=== PATIENT | male | born 1970 | race Caucasian/White ===

== ENCOUNTER 2016-06-28 12:34 | Emergency (ER) ==
--- NOTE | 2016-06-28 13:08 | PROVIDER DOCUMENTATION ---
HPI-General Adult - General Chief Complaint: Return/Recheck Stated Complaint: EXTREMITY PAIN/POSS BLOOD CLOT Time Seen by Provider: 06/28/16 12:44 Source: patient Allergies/Adverse Reactions: Patient Allergies Allergy/AdvReac Type Severity Reaction Status Date / Time codeine Allergy NAUSEA/VOMI Verified 06/22/16 07:18 TING latex AdvReac RASH Verified 06/22/16 07:18 Home Medications: Alprazolam [Xanax] 1 mg PO QHS 02/18/14 Divalproex [Depakote] 500 mg PO DAILY 10/07/15 Methocarbamol [Robaxin-750] 750 mg PO TID 01/28/16 Montelukast Sodium [Singulair] 4 mg PO DAILY 01/28/16 - History of Present Illness -Gen Adult Nature of Presenting Problems: Pt. is 45 yom that presents with c/o left leg pain and was recently diagnosed with a DVT in his right leg. Pt. has returned today concerned that the clot is worse and states the pain is worse. Location of Pain/Injury: reports: lower extremity (Right lower). denies: head, face, mouth, neck, chest, upper extremity, hand(s), abdomen, back, pelvis, genitalia, feet, upper body, lower body, generalized Pain Radiation: reports: no radiation Quality of Pain: reports: aching. denies: burning, cramping, dull, fullness, indigestion, pressure, sharp, stabbing, tearing, throbbing, tightness Severity: reports: moderate. denies: mild, severe Onset/Duration: reports: gradual, 1 week ago Timing: reports: still present, constant. denies: improving, gone now, resolved prior to arrival, intermittent, changing over time, getting worse Context/Activities at Onset: reports: none. denies: recent emotional stress, recent physical stress, recent trauma history, possible bad food, cold exposure , out of country travel Modifying Factors: improves with: nothing Associated Symptoms: reports: other (Right leg pain). denies: anxiety, arm pain , back/neck pain, chest pain, constipation, cough, diaphoresis, diarrhea, dizziness, EENT symptoms, fatigue, fever/chills, genitourinary problems, headaches, heartburn, joint pain, loss of appetite, malaise, muscle aches, sinus congestion/drainage, nausea, rash, seizure, shortness of breath, sensory/ motor loss, pain with inspiration, swelling/mass in abdomen, syncope, vomiting, weakness, trouble walking Similar Symptoms Previously?: Yes Recently seen or treated by another doctor?: Yes Review of Systems - Adult - REVIEW OF SYSTEMS - ADULT Constitutional: reports: see HPI. denies: chills, fever, fatique Eyes: reports: see HPI. denies: discharge, blurred vision, double vision Ears, Nose, Mouth & Throat: reports: see HPI. denies: ear discharge, ear pain, sinus problem, nose pain, loose teeth, mouth/dental pain, throat pain Cardiovascular: reports: see HPI. denies: chest pain, irregular heart rate, orthopnea, syncope Respiratory: reports: see HPI. denies: chronic cough, cough, dyspnea on exertion, pleurisy, shortness of breath, wheezing Gastrointestinal: reports: see HPI. denies: abdominal pain, hematemesis, diarrhea, nausea, vomiting Genitourinary: reports: see HPI. denies: dysuria, discharge, hematuria, hesitency, urgency Musculoskeletal: reports: see HPI, muscle aches (right leg). denies: bone pain , back pain, joint pain, joint swelling, neck pain Integumentary: reports: see HPI. denies: hives, hair loss, itching, rash, skin thickening Neurological: reports: see HPI. denies: ataxia, headache/migraines, numbness, seizure, tremors Psychiatric: reports: see HPI. denies: anxiety, depression, insomnia, panic attacks, suicidal thoughts Past History - Adult - PAST MEDICAL HISTORY-ADULT Review of Records: reports: Old Records Reviewed, Nursing Assessment Review, Medications Reviewed, Social history reviewed & non-contributory. Respiratory: reports: sleep apnea Musculoskeletal: reports: intervertebral disc disease (cervical DDD) Neurological: reports: headaches/migraines Psychiatric: reports: anxiety, bipolar - PRIOR SURGERIES/PROCEDURES Surgical/Procedure History: reports: tonsillectomy, orthopedic (extremity) - PRIOR HOSPITALIZATIONS Prior Hospitalizations: reports: none - IMMUNIZATION STATUS Childhood Immunizations: See Nurse Assessment Flu Vaccine: See Nurse Assessment - FAMILY HISTORY Family History: CAD over 55 yo Physical Exam-General - PHYSICAL EXAM-ADULT Initial Vital Signs Reviewed: Yes - CONSTITUTIONAL General Appearance: alert, mild distress, thin. negative: anxious, lethargic, slow to respond, obtunded, combative - EYES Eyes: PERRL/EOMI, pink conjunctivae. negative: conjuctival exudate, scleral icterus, subconjunctival hemorrhage - HEAD, EARS, NOSE, MOUTH & THROAT HENMT: normocephalic/atraumatic, moist mucous membranes, normal ENT inspection. negative: angioedema, frontal tenderness, maxillary tenderness - NECK Neck: non-tender, full range of motion, supple, normal inspection. negative: lymphadenopathy, trachial deviation, thyromegaly - RESPIRATORY Respiratory: lungs clear, normal breath sounds. negative: crackles, rales, rhonchi, stridor, wheezing - CARDIOVASCULAR Cardiovascular: normal peripheral pulses, regular rate, rhythm, no edema, no JVD , no murmur. negative: extra beats, friction rub, irregularly irregular - CHEST (BREASTS) Chest/Breast: deferred - GASTROINTESTINAL (ABDOMEN) Abdominal Exam: normal bowel sounds, non tender, soft. negative: distended, guarding, rigid, rebound, tenderness, hernia, mass - GENITOURINARY Male Genitalia: deferred Rectal Exam: deferred Hemoccult Exam: deferred - LYMPHATIC Lymphatic: no adenopathy. negative: axilla node tender, cervical node tenderness - MUSCULOSKELETAL Back Exam: normal inspection, no CVA tenderness, no vertebral tenderness. negative: ecchymosis, muscle spasm, vertebral tenderness Extremity: normal range of motion, normal gait, erythema (Right leg), tenderness (Right leg). negative: deformity, inflammation Peripheral Pulses: radial (R): 2+, radial (L): 2+ - SKIN Integumentary: normal color, normal turgor, warm/dry. negative: cyanosis, diaphoresis, ecchymosis, erythema, jaundice, mottled, pallor, petechiae, purpura , rash, swelling, tenderness - NEUROLOGIC Neurologic: grossly normal, no motor/sensory deficits. negative: aphasia, facial droop, focal weakness, motor weakness, sensory deficit - PSYCHIATRIC Psych/Mental Status: normal mood/affect, normal thought content, normal thought process, oriented x 3. negative: anxious, paranoid, tearful Progress - PLAN OF CARE/RESULTS Progress/Plan/Lab Results: Discussed results and plan of care with patient. Patient agrees with plan and verbalizes understanding. Vital Signs Temp Pulse Resp BP Pulse Ox 06/28/16 12:37 97.9 F 80 18 154/90 100 codeine Allergy (Verified 06/22/16 07:18) NAUSEA/VOMITING latex Adverse Reaction (Verified 06/22/16 07:18) RASH Alprazolam [Xanax] 1 mg PO QHS 02/18/14 Divalproex [Depakote] 500 mg PO DAILY 10/07/15 Methocarbamol [Robaxin-750] 750 mg PO TID 01/28/16 Montelukast Sodium [Singulair] 4 mg PO DAILY 01/28/16 Clindamycin [Cleocin] 300 mg PO Q6HR #28 capsule 06/22/16 Hydrocodone/Acetaminophen [[place] 5-325 Tablet] 1 each PO Q6H PRN #20 tablet Acetaminophen/Diphenhydramine [Percogesic Extra Str Caplet] 1 each PO Q4-6H PRN PRN #30 tablet 06/25/16 Apixaban [Eliquis] 5 mg PO BID #60 tablet 06/25/16 Departure - Departure Time of Disposition Order: 13:14 DIAGNOSIS: Thrombophlebitis DVT (deep venous thrombosis) Qualifiers: DVT location: lower extremity Affected thrombotic vein of extremity: unspecified vein of extremity Laterality: right Chronicity: acute Qualified Code (s): I82.401 - Acute embolism and thrombosis of unspecified deep veins of right lower extremity Disposition: HOME 01 Certified Medical Emergency: Emergent Condition: Stable Additional Instructions: Follow up with primary care physician Continue previously prescribed medications Return to ED for any concerns or worsening of symptoms ED Follow Up Instructions: You have been treated by a care provider in the Emergency Department. These instructions are being provided to you so you can have an understanding of how to care for yourself upon discharge. Upon discharge from the Emergency Department, you are responsible for making arrangements for follow-up care by a physician of your choice. Take all prescribed medications as directed. Return to the Emergency Department immediately for any new or worsening symptoms. You may call the Physician Referral phone number at [phone] to obtain a list of Physicians who are taking new patients. Prescriptions: Clindamycin [Cleocin] 150 mg PO Q6HR #16 capsule Ibuprofen [Motrin] 800 mg PO Q8H PRN PRN #20 tablet PRN Reason: inflammation Omeprazole 20 mg PO DAILY #20 tablet. Attestation - Physician/ Mid-level Attestation Patient care was provided by Mid-level provider ([employer]):: Yes Mid-level provider:: Adam Adhikari Mid-level documentation review:: The Mid-level provider documentation, treatment plan and medical decision making was reviewed by the physician who agrees with all treatment and medical decision making by the MLP. The physician spent face to face time with patient:: Yes
[2016-06-28 13:31] VITALS: BP 145/74
== END 2016-06-28 13:30 | disposition home or self-care (01) ==
LOC: P.ED 12:34
DX: I82.401 Acute embolism and thrombosis of unspecified deep veins of right lower extremity (principal); I80.299 Phlebitis and thrombophlebitis of other deep vessels of unspecified lower extremity; M79.605 Pain in left leg; M79.1 Myalgia; R51 Headache; M50.30 Other cervical disc degeneration, unspecified cervical region; F41.9 Anxiety disorder, unspecified; F31.9 Bipolar disorder, unspecified; Z79.899 Other long term (current) drug therapy; Z79.01 Long term (current) use of anticoagulants; Z82.49 Family history of ischemic heart disease and other diseases of the circulatory system
CPT/HCPCS: 99282

== ENCOUNTER 2016-06-29 14:57 | Emergency (ER) ==
[2016-06-29 15:34] VITALS: BP 129/84
--- NOTE | 2016-06-29 17:01 | PROVIDER DOCUMENTATION ---
Addendum entered and electronically signed by Aretha Woodall Scribe 06/29/16 17 :47: Progress - PLAN OF CARE/RESULTS Progress/Plan/Lab Results: Orders Category Date Time Status CHEST-2 VIEWS [RAD] Stat Exams 06/29/16 16:[address] [URINALYSIS] Stat Lab 06/29/16 17:[address]EN [address] Stat Lab 06/29/16 17:02 Completed EKG [EKG] Stat Ther 06/29/16 17:00 Draft Vital Signs - 24 hr 06/29/16 15:31 Temperature 97.1 F L Pulse Rate 80 Respiratory 18 Rate Blood Pressure 129/84 O2 Sat by Pulse 98 Oximetry Laboratory Tests 06/29/16 06/29/16 17:02 17:02 Urine Source CLEAN CATCH Urine Color YELLOW Urine Clarity CLEAR Urine pH 5.0 Ur Specific [place] 1.020 Urine Protein NEGATIVE Urine Ketones NEGATIVE Urine Blood NEGATIVE Urine Nitrite NEGATIVE Urine Bilirubin NEGATIVE Urine Urobilinogen NORMAL Urine WBC NEGATIVE Urine Glucose NEGATIVE Urine Opiates Screen NONE DETECTED Ur Oxycodone Screen NONE DETECTED Urine Methadone Screen NONE DETECTED Ur Barbituates Screen NONE DETECTED Ur Tricyclics Screen NONE DETECTED Ur Phencyclidine Scrn NONE DETECTED Ur Amphetamines Screen NONE DETECTED U Methamphetamines Scrn NONE DETECTED Urine MDMA Screen NONE DETECTED U Benzodiazepines Scrn PRESUMPTIVE POSITIVE A Urine Cocaine Screen NONE DETECTED U Cannabinoids Screen NONE DETECTED Original Note: HPI-General Adult - General Source: patient - History of Present Illness -Gen Adult Nature of Presenting Problems: RECENTLY DIAGNOSED WITH DVT PUT ON ELOQUIS RETURNS TODAY WITH HEADACHE,CHEST PRESSURE,AND ELEVATED BP OF 150/100 THIS AFTERNOON. PT IS VERY ANXIOUS UPON EXAM. DENIES N,V,SOB.NORMAL STRESS TEST 3 MONTHS AGO Location of Pain/Injury: reports: none Pain Radiation: reports: no radiation Quality of Pain: reports: pressure Severity: reports: mild Onset/Duration: reports: this morning Timing: reports: still present Similar Symptoms Previously?: No Recently seen or treated by another doctor?: Yes <Aretha Woodall - Last Filed: 06/29/16 17:22> <Evon Magaña - Last Filed: 06/29/16 17:43> - General Chief Complaint: Headache Stated Complaint: B/P PROB Time Seen by Provider: 06/29/16 15:59 Allergies/Adverse Reactions: Patient Allergies Allergy/AdvReac Type Severity Reaction Status Date / Time codeine Allergy NAUSEA/VOMI Verified 06/29/16 15:34 TING latex AdvReac RASH Verified 06/29/16 15:34 Home Medications: Alprazolam [Xanax] 1 mg PO QHS 02/18/14 Divalproex [Depakote] 500 mg PO DAILY 10/07/15 Methocarbamol [Robaxin-750] 750 mg PO TID 01/28/16 Montelukast Sodium [Singulair] 4 mg PO DAILY 01/28/16 Review of Systems - Adult - REVIEW OF SYSTEMS - ADULT Constitutional: denies: chills, fever, fatique Eyes: reports: no symptoms reported Ears, Nose, Mouth & Throat: denies: ear pain, sinus problem, throat pain Cardiovascular: reports: chest pain. denies: irregular heart rate, orthopnea, syncope Respiratory: reports: no symptoms reported Gastrointestinal: reports: no symptoms reported Genitourinary: reports: no symptoms reported Musculoskeletal: reports: no symptoms reported Integumentary: reports: no symptoms reported Neurological: reports: headache/migraines. denies: dizziness/vertigo, loss of balance, numbness, paresthesia Psychiatric: reports: no symptoms reported Endocrine: reports: no symptoms reported Hematologic/Lymphatic: reports: no symptoms reported Allergic/Immunologic: reports: no symptoms reported All Other Systems: Reviewed and Negative <Aretha Woodall - Last Filed: 06/29/16 17:22> Past History - Adult - PAST MEDICAL HISTORY-ADULT Review of Records: reports: Nursing Assessment Review Major Childhood Illnesses: reports: denies history Cardiovascular: reports: denies history Respiratory: reports: sleep apnea Musculoskeletal: reports: intervertebral disc disease (cervical DDD) Neurological: reports: headaches/migraines Psychiatric: reports: anxiety, bipolar - PRIOR SURGERIES/PROCEDURES Surgical/Procedure History: reports: tonsillectomy, orthopedic (extremity) - PRIOR HOSPITALIZATIONS Prior Hospitalizations: reports: none - IMMUNIZATION STATUS Childhood Immunizations: See Nurse Assessment Flu Vaccine: See Nurse Assessment - FAMILY HISTORY Family History: CAD over 55 yo - SOCIAL HISTORY Smoking: denies Substance Use: none/never Alcohol Use Frequency: never <Aretha Woodall - Last Filed: 06/29/16 17:22> Physical Exam-General - PHYSICAL EXAM-ADULT Initial Vital Signs Reviewed: Yes - CONSTITUTIONAL General Appearance: appears well, alert, no apparent distress - EYES Eyes: PERRL/EOMI, pink conjunctivae - HEAD, EARS, NOSE, MOUTH & THROAT HENMT: normocephalic/atraumatic, moist mucous membranes, normal ENT inspection - NECK Neck: non-tender, full range of motion, normal inspection - RESPIRATORY Respiratory: chest non-tender, lungs clear, normal breath sounds - CARDIOVASCULAR Cardiovascular: normal peripheral pulses, regular rate, rhythm, no edema - GASTROINTESTINAL (ABDOMEN) Abdominal Exam: normal bowel sounds, non tender, soft - LYMPHATIC Lymphatic: no adenopathy - MUSCULOSKELETAL Back Exam: normal inspection, no CVA tenderness, no vertebral tenderness Extremity: normal range of motion, non-tender, normal gait - SKIN Integumentary: normal color, normal turgor, warm/dry - NEUROLOGIC Neurologic: grossly normal, no motor/sensory deficits - PSYCHIATRIC Psych/Mental Status: normal mood/affect, normal thought content, normal thought process, oriented x 3 <Aretha Woodall - Last Filed: 06/29/16 17:22> Progress - PLAN OF CARE/RESULTS Progress/Plan/Lab Results: Orders Category Date Time Status CHEST-2 VIEWS [RAD] Stat Exams 06/29/16 16:[address] [URINALYSIS] Stat Lab 06/29/16 16:44 [address] S[address]EN [address] Stat Lab 06/29/16 16:44 Uncollected EKG [EKG] Stat Ther 06/29/16 17:00 Ordered Vital Signs - 24 hr 06/29/16 15:31 Temperature 97.1 F L Pulse Rate 80 Respiratory 18 Rate Blood Pressure 129/84 O2 Sat by Pulse 98 Oximetry Orders Category Date Time Status CHEST-2 VIEWS [RAD] Stat Exams 06/29/16 16:[address] [URINALYSIS] Stat Lab 06/29/16 17:02 [address] S[address]EN [address] Stat Lab 06/29/16 17:02 Received EKG [EKG] Stat Ther 06/29/16 17:00 Ordered Laboratory Tests 06/29/16 17:02 Urine Source CLEAN CATCH - EKG 1 Time of EKG reading by physician:: 17:11 EKG Read and Signed by:: Evon Magaña EKG Interpretation (*Must complete 3 of following elements*): Normal Rate: 72 Rhythm: NSR [place]: normal QRS: normal [place] Interval: normal <Aretha Woodall - Last Filed: 06/29/16 17:22> - PLAN OF CARE/RESULTS Progress/Plan/Lab Results: Laboratory Results - last 24 hr 06/29/16 17:02 Urine Source CLEAN CATCH Vital Signs Temp Pulse Resp BP Pulse Ox 06/29/16 15:31 97.1 F L 80 18 129/84 98 codeine Allergy (Verified 06/29/16 15:34) NAUSEA/VOMITING latex Adverse Reaction (Verified 06/29/16 15:34) RASH Alprazolam [Xanax] 1 mg PO QHS 02/18/14 Divalproex [Depakote] 500 mg PO DAILY 10/07/15 Methocarbamol [Robaxin-750] 750 mg PO TID 01/28/16 Montelukast Sodium [Singulair] 4 mg PO DAILY 01/28/16 Clindamycin [Cleocin] 300 mg PO Q6HR #28 capsule 06/22/16 Hydrocodone/Acetaminophen [[place] 5-325 Tablet] 1 each PO Q6H PRN #20 tablet Acetaminophen/Diphenhydramine [Percogesic Extra Str Caplet] 1 each PO Q4-6H PRN PRN #30 tablet 06/25/16 Apixaban [Eliquis] 5 mg PO BID #60 tablet 06/25/16 Clindamycin [Cleocin] 150 mg PO Q6HR #16 capsule 06/28/16 Ibuprofen [Motrin] 800 mg PO Q8H PRN PRN #20 tablet 06/28/16 Omeprazole 20 mg PO DAILY #20 tablet. 06/28/16 Laboratory 06/29/16 17:02 Urine Source CLEAN CATCH Vital Signs Temp Pulse Resp BP Pulse Ox 06/29/16 15:31 97.1 F L 80 18 129/84 98 codeine Allergy (Verified 06/29/16 15:34) NAUSEA/VOMITING latex Adverse Reaction (Verified 06/29/16 15:34) RASH Alprazolam [Xanax] 1 mg PO QHS 02/18/14 Divalproex [Depakote] 500 mg PO DAILY 10/07/15 Methocarbamol [Robaxin-750] 750 mg PO TID 01/28/16 Montelukast Sodium [Singulair] 4 mg PO DAILY 01/28/16 Clindamycin [Cleocin] 300 mg PO Q6HR #28 capsule 06/22/16 Hydrocodone/Acetaminophen [[place] 5-325 Tablet] 1 each PO Q6H PRN #20 tablet Acetaminophen/Diphenhydramine [Percogesic Extra Str Caplet] 1 each PO Q4-6H PRN PRN #30 tablet 06/25/16 Apixaban [Eliquis] 5 mg PO BID #60 tablet 06/25/16 Clindamycin [Cleocin] 150 mg PO Q6HR #16 capsule 06/28/16 Ibuprofen [Motrin] 800 mg PO Q8H PRN PRN #20 tablet 06/28/16 Omeprazole 20 mg PO DAILY #20 tablet. 06/28/16 Laboratory 06/29/16 17:02 Urine Source CLEAN CATCH - REASSESSMENT Reassessment #1 Time Reassessed: 17:35 Status: improving (Pt was startedf Eliquis for his RLE DVT X 4 days ago. Deneis CP/SOB, even though he has pressure feeling in his chest as usual with a normal stress test X 3 months ago for it. Pt has an appointment with a luggage liner next Sun for further management. Pt is not tachycardiac and he has no signs for PE currently. Pt agrees to be d/c home and f/u with Oncology next Sun.) <Evon Magaña - Last Filed: 06/29/16 17:43> Departure <Aretha Woodall - Last Filed: 06/29/16 17:22> - Departure Time of Disposition Order: 17:38 Certified Medical Emergency: Emergent <Evon Magaña - Last Filed: 06/29/16 17:43> - Departure DIAGNOSIS: URI, acute Headache Qualifiers: Headache type: unspecified Headache chronicity pattern: unspecified pattern Intractability: not intractable Qualified Code(s): R51 - Headache Disposition: HOME 01 Condition: Stable Additional Instructions: Follow up with your Specialist as scheduled. Return to ER if your symptoms worsen. Prescriptions: Azithromycin [Zithromax Z-Juan Alberto] 250 mg PO DIRECTED #1 pkg Referrals: Cherelle Batista [Primary Care Provider] - Instructions: Migraine Headache, [id number] Attestation - Scribe Verification/Attestation Scribe:: Aretha Woodall Acting as Scribe for:: Evon Magaña Scribe documention review:: This chart was documented by a scribe and accurately reflects the service the provider performed and the decisions made by the provider. <Aretha Woodall - Last Filed: 06/29/16 17:22> Physician Attestation
[2016-06-29 17:21] LABS: URINE MICROSCOPIC NEEDED? NO; URINE SOURCE CLEAN CATCH
--- NOTE | 2016-06-29 17:34 | EKG Report ---
Test Performed on : 06/29/2016 5:11:18 PM Test Reason : CP Blood Pressure : / mmHG Vent. Rate : 072 BPM Atrial Rate : 072 BPM P-R Int : 130 ms QRS Dur : 080 ms QT Int : 394 ms P-R-T Axes : 018 060 009 degrees QTc Int : 431 ms Normal sinus rhythm. Normal ECG When compared with ECG of 25-JUN-2016 17:07, No significant change was found Unconfirmed Result
[2016-06-29 17:35] LABS: UR AMPHETAMINES QUAL NONE DETECTED (NONE DETECT); UR BARBITUATES QUAL NONE DETECTED (NONE DETECT); UR BENZODIAZEPIN QUAL PRESUMPTIVE POSITIVE (NONE DETECT); UR CANNABINOIDS QUAL NONE DETECTED (NONE DETECT); UR COCAINE QUAL NONE DETECTED (NONE DETECT); UR MDMA QUAL NONE DETECTED (NONE DETECT); UR METHADONE QUAL NONE DETECTED (NONE DETECT); UR METHAMPHETAMINE QUAL NONE DETECTED (NONE DETECT); UR OPIATES QUAL NONE DETECTED (NONE DETECT); UR OXYCODONE QUAL NONE DETECTED (NONE DETECT); UR PCP QUAL NONE DETECTED (NONE DETECT); UR TCA QUAL NONE DETECTED (NONE DETECT)
[2016-06-29 17:36] LABS: BILIRUBIN URINE NEGATIVE (NEGATIVE); BLOOD URINE NEGATIVE (NEGATIVE); CLARITY CLEAR (CLEAR); COLOR YELLOW; GLUCOSE URINE NEGATIVE (NEGATIVE); LEUKOCYTES URINE NEGATIVE (NEGATIVE); NITRITE URINE NEGATIVE (NEGATIVE); PROTEIN URINE NEGATIVE (NEGATIVE); UROBILINOGEN URINE NORMAL
--- NOTE | 2016-06-29 21:22 | Diag Imaging Result Document ---
PROCEDURE NAME: CHEST-2 VIEWS - 06/29/2016 CHEST, 2 VIEWS: Heart size is normal. There is mild linear atelectasis or scarring at the anterior left base similar to the previous exam. The lungs otherwise appear clear. There is no consolidation, pleural effusion, or pneumothorax identified. IMPRESSION: No evidence of acute disease.
== END 2016-06-29 17:57 | disposition home or self-care (01) ==
LOC: P.ED 14:57
DX: J06.9 Acute upper respiratory infection, unspecified (principal); R51 Headache; R07.89 Other chest pain; M50.30 Other cervical disc degeneration, unspecified cervical region; F41.9 Anxiety disorder, unspecified; Z79.899 Other long term (current) drug therapy; Z79.01 Long term (current) use of anticoagulants; Z86.718 Personal history of other venous thrombosis and embolism; Z82.49 Family history of ischemic heart disease and other diseases of the circulatory system
CPT/HCPCS: 71020; 93005; 99283; G0477

== ENCOUNTER 2016-09-07 17:09 | Emergency (ER) ==
[2016-09-07 17:17] VITALS: BP 168/117
[2016-09-07] MEDS ORDERED: NORCO-10 PO ONE (17:27)
--- NOTE | 2016-09-07 17:27 | PROVIDER DOCUMENTATION ---
HPI-EENT General - General Chief Complaint: Toothache Stated Complaint: HEADACHE/TOOTHACHE Time Seen by Provider: 09/07/16 17:22 Source: patient Allergies/Adverse Reactions: Patient Allergies Allergy/AdvReac Type Severity Reaction Status Date / Time codeine Allergy NAUSEA/VOMI Verified 06/29/16 15:34 TING latex AdvReac RASH Verified 06/29/16 15:34 Home Medications: Home Medication List Medication Instructions Recorded Confirmed Last Taken Type Alprazolam [Xanax] 1 mg PO QHS 02/18/14 06/22/16 06/21/16 History Divalproex [Depakote] 500 mg PO DAILY 10/07/15 06/22/16 06/21/16 History Methocarbamol [Robaxin-750] 750 mg PO TID 01/28/16 06/22/16 Unknown History Montelukast Sodium [Singulair] 4 mg PO DAILY 01/28/16 06/22/16 Unknown History Clindamycin [Cleocin] 300 mg PO Q6HR #28 capsule 06/22/16 Unknown Rx Hydrocodone/Acetaminophen [[place] 1 each PO Q6H PRN #20 tablet 06/22/16 Unknown Rx 5-325 Tablet] Acetaminophen/Diphenhydramine 1 each PO Q4-6H PRN PRN #30 tablet 06/25/16 Unknown Rx [Percogesic Extra Str Caplet] Apixaban [Eliquis] 5 mg PO BID #60 tablet 06/25/16 Unknown Rx Clindamycin [Cleocin] 150 mg PO Q6HR #16 capsule 06/28/16 Unknown Rx Ibuprofen [Motrin] 800 mg PO Q8H PRN PRN #20 tablet 06/28/16 Unknown Rx Omeprazole 20 mg PO DAILY #20 tablet. 06/28/16 Unknown Rx Azithromycin [Zithromax Z-Juan Alberto] 250 mg PO DIRECTED #1 pkg 06/29/16 Unknown Rx Ketorolac [Toradol] 10 mg PO Q6H PRN PRN #12 tablet 09/07/16 Unknown Rx Penicillin V Potassium 500 mg PO BID #20 tablet 09/07/16 Unknown Rx Tramadol [Ultram] 50 mg PO Q8HR #10 tablet 09/07/16 Unknown Rx - History of Present Illness-EENT General Nature of Presenting Problem: patient is a 45 y/o M that presents with one week of toothache that got worse today. denies fever/chills. reports using a lot of oral-jel with no relief. hasn 't seen a dentist EENT Location: reports: dental Quality of Pain: reports: aching Severity: reports: mild Onset/Duration: reports: gradual, 1 week ago Timing: reports: still present, constant Prearrival Treatment: Initiated over the counter meds Associated Symptoms: reports: tooth pain. denies: facial pain/swelling, fever, voice change Locality of Occurance: Home Similar Symptoms Previously?: No Recently seen or treated by another doctor?: No - Throat/Dental Throat/Dental Problem Symptoms: reports: toothache Review of Systems - Adult - REVIEW OF SYSTEMS - ADULT Constitutional: denies: chills, fever Eyes: reports: no symptoms reported Ears, Nose, Mouth & Throat: reports: mouth/dental pain, mouth swelling. denies : sinus problem, nose pain, throat pain Cardiovascular: reports: no symptoms reported Respiratory: reports: no symptoms reported Gastrointestinal: reports: no symptoms reported Genitourinary: reports: no symptoms reported Musculoskeletal: reports: no symptoms reported Integumentary: reports: no symptoms reported Neurological: reports: no symptoms reported Psychiatric: reports: no symptoms reported Endocrine: reports: no symptoms reported Hematologic/Lymphatic: reports: no symptoms reported Allergic/Immunologic: reports: no symptoms reported All Other Systems: Reviewed and Negative Past History - Adult - PAST MEDICAL HISTORY-ADULT Review of Records: reports: Old Records Reviewed, Nursing Assessment Review, Medications Reviewed Major Childhood Illnesses: reports: denies history Cardiovascular: reports: denies history Respiratory: reports: sleep apnea Musculoskeletal: reports: intervertebral disc disease (cervical DDD) Neurological: reports: headaches/migraines Psychiatric: reports: anxiety, bipolar - PRIOR SURGERIES/PROCEDURES Surgical/Procedure History: reports: tonsillectomy, orthopedic (extremity) - PRIOR HOSPITALIZATIONS Prior Hospitalizations: reports: none - IMMUNIZATION STATUS Childhood Immunizations: See Nurse Assessment Flu Vaccine: See Nurse Assessment - FAMILY HISTORY Family History: CAD over 55 yo - SOCIAL HISTORY Smoking: non-smoker Living Situation: family Physical Exam- EENT - Physical Exam EENT Initial Vital Signs Reviewed: Yes General Appearance: alert, no apparent distress Eye Exam: bilateral eye: normal inspection, PERRL Ear Exam: bilateral ear: TM normal Nasal Exam: normal inspection Throat Exam: pharynx normal, dental tenderness Neck: full range of motion, normal inspection Respiratory: lungs clear, normal breath sounds, no respiratory distress, no accessory muscle use Cardiovascular: regular rate, rhythm, no JVD Abdominal Exam: normal bowel sounds, non tender, soft Extremity: normal range of motion, normal inspection Integumentary: normal color, warm/dry Neurologic: grossly normal, no motor/sensory deficits Psych/Mental Status: normal mood/affect, oriented x 3 Progress - PLAN OF CARE/RESULTS Progress/Plan/Lab Results: Orders Category Date Time Status Hydrocodone/APAP 10 mg/325 mg [[place]-10] Med 09/07/16 17:27 Discontinued 1 each PO NOW ONE Vital Signs Temp Pulse Resp BP Pulse Ox 09/07/16 17:16 98.4 F 80 18 168/117 98 codeine Allergy (Verified 06/29/16 15:34) NAUSEA/VOMITING latex Adverse Reaction (Verified 06/29/16 15:34) RASH Alprazolam [Xanax] 1 mg PO QHS 02/18/14 Divalproex [Depakote] 500 mg PO DAILY 10/07/15 Methocarbamol [Robaxin-750] 750 mg PO TID 01/28/16 Montelukast Sodium [Singulair] 4 mg PO DAILY 01/28/16 Clindamycin [Cleocin] 300 mg PO Q6HR #28 capsule 06/22/16 Hydrocodone/Acetaminophen [[place] 5-325 Tablet] 1 each PO Q6H PRN #20 tablet Acetaminophen/Diphenhydramine [Percogesic Extra Str Caplet] 1 each PO Q4-6H PRN PRN #30 tablet 06/25/16 Apixaban [Eliquis] 5 mg PO BID #60 tablet 06/25/16 Clindamycin [Cleocin] 150 mg PO Q6HR #16 capsule 06/28/16 Ibuprofen [Motrin] 800 mg PO Q8H PRN PRN #20 tablet 06/28/16 Omeprazole 20 mg PO DAILY #20 tablet. 06/28/16 Azithromycin [Zithromax Z-Juan Alberto] 250 mg PO DIRECTED #1 pkg 06/29/16 Ketorolac [Toradol] 10 mg PO Q6H PRN PRN #12 tablet 09/07/16 Penicillin V Potassium 500 mg PO BID #20 tablet 09/07/16 Tramadol [Ultram] 50 mg PO Q8HR #10 tablet 09/07/16 BIPOLAR DISORDER, UNSPECIFIED (09/07/16) OTHER SPECIFIED DISORDERS OF TEETH AND SUPPORTING STRUCTURES (09/07/16) OTHER CERVICAL DISC DEGENERATION, UNSP CERVICAL REGION (09/07/16) LOCALIZED SWELLING, MASS AND LUMP, HEAD (09/07/16) HEADACHE (09/07/16) [facility] (CURRENT) USE OF ANTICOAGULANTS (09/07/16) [facility] (CURRENT) USE OF INHALED STEROIDS (09/07/16) 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 ED Follow Up Instructions: You have been treated by a care provider in the Emergency Department. These instructions are being provided to you so you can have an understanding of how to care for yourself upon discharge. Upon discharge from the Emergency Department, you are responsible for making arrangements for follow-up care by a physician of your choice. Take all prescribed medications as directed. Return to the Emergency Department immediately for any new or worsening symptoms. You may call the Physician Referral phone number at [phone] to obtain a list of Physicians who are taking new patients. Prescriptions: Penicillin V Potassium 500 mg PO BID #20 tablet Ketorolac [Toradol] 10 mg PO Q6H PRN PRN #12 tablet PRN Reason: Pain Tramadol [Ultram] 50 mg PO Q8HR #10 tablet Referrals: Cherelle Batista [Primary Care Provider] - Forms: Return to School/Parent Work Instructions: Penicillin V tablets, Tramadol tablets Attestation - Scribe Verification/Attestation Scribe:: Erick Doll Acting as Scribe for:: Mary Jane Juarez Scribe documention review:: This chart was documented by a scribe and accurately reflects the service the provider performed and the decisions made by the provider. - Physician/ ESAU Attestation Patient care was provided by Advanced Practice Provider:: Yes Advanced Practice Provider:: Mary Jane Juarez Advanced Practice Provider documentation review:: The Mid-level provider documentation, treatment plan and medical decision making was reviewed by the physician who agrees with all treatment and medical decision making by the MLP. Physician Attestation - Physician Attestation I, the provider, attest to the following statement:: Mary Jane Juarez Physician documentation Attestation:: This documentation recorded by the scribe accurately reflects the service I personally performed and the decisions made by me.
== END 2016-09-07 17:48 | disposition home or self-care (01) ==
LOC: P.ED 17:09
DX: K02.9 Dental caries, unspecified (principal); K08.89 Other specified disorders of teeth and supporting structures; R22.0 Localized swelling, mass and lump, head; M50.30 Other cervical disc degeneration, unspecified cervical region; R51 Headache; F31.9 Bipolar disorder, unspecified; Z79.899 Other long term (current) drug therapy; Z79.51 Long term (current) use of inhaled steroids; Z79.01 Long term (current) use of anticoagulants; Z82.49 Family history of ischemic heart disease and other diseases of the circulatory system
CPT/HCPCS: 99282